=== PATIENT | female | born 1990 ===

== ENCOUNTER 2019-12-28 18:23 | Observation (INO) | payer OTHER ==
[2019-12-28 20:52] VITALS: BP 106/64; PULSE 94; TEMP 98.8
[2019-12-29 01:59] VITALS: BP 99/63; PULSE 99; TEMP 98.8
[2019-12-29 05:59] VITALS: BP 96/62; PULSE 95; TEMP 98.1
[2019-12-29 06:59] LABS: BASO % 0.4 % (0.0-2.0); EOS # 0.1 (0.0-0.7); EOS % 0.9 % (0-4.0); GRAN # 7.7 (1.4-6.5); GRAN % 69.6 % (42.2-75.2); HEMATOCRIT 37.3 % (37.0-47.0); HEMOGLOBIN 12.5 g/dl (12.5-16.0); LYMPH # 2.3 (1.2-3.4); LYMPH % 20.6 % (20.0-51.0); MEAN CELL VOLUME 93 fl (80.0-100.0); MEAN CORPUSCULAR HEMOGLOBIN 31 pg (27.0-31.0); MEAN CORPUSCULAR HGB CONC 34 g/dl (33.0-37.0); MEAN PLATELET VOLUME 9.7 fl (7.4-10.4); MONO # 0.9 (0.1-0.6); MONO % 7.9 % (1.7-9.3); PLATELET COUNT 308 K/mm3 (130-400); RED BLOOD COUNT 4.01 M/mm3 (4.10-5.30); REDCELL DISTRIBUTION WIDTH-CV 12.9 % (11.5-14.5)
[2019-12-29 07:17] LABS: ALBUMIN 3.8 gm/dL (3.5-5.0); BILIRUBIN,TOTAL 1.1 mg/dL (0.0-1.0); CREATININE, serum 0.58 (0.52-1.25); POTASSIUM 3.4 mmol/L (3.4-5.0); TOTAL PROTEIN 6.8 gm/dL (6.4-8.2)
[2019-12-29 07:38] VITALS: BP 102/69; PULSE 95; TEMP 98.2
--- NOTE | 2019-12-29 09:58 | NUR ---
BILL met with the patient to discuss discharge plan. The patient lives on [address] with her , aH ([id number]#[phone]), and two children. She reports independence with ADLs and does not have any DME. The patient's PCP is Dr. Warner at [facility] and she receives her medications at the on [address]. She reports no difficulties obtaining her meds. The patient does not have advanced directives and she was not interested in completing them at this time. The patient plans to return home with her family upon discharge. No additional needs at this time.
--- NOTE | 2019-12-29 10:58 | NUR ---
Patient to [facility]. rounded this am. She has tolerated clears without nausea. Patient only complaint is of a headache, patient reports she normally drinks soda. Will monitor
[2019-12-29 12:07] VITALS: BP 105/63; PULSE 86; TEMP 98
[2019-12-29] MEDS ORDERED: AMOXICILLIN/CLA1 TA1 PO (14:28)
--- NOTE | 2019-12-29 14:45 | NUR ---
Patient ready for discharge-orders obtained from Dr. Mayer. Patient given dose of Hs Augmentin, script was sent to her pharmacy [place], patient to begin in am. Patient aware she is to follow up with PCP [place] later this week or begining of next week regaurding pregnacy & gallstones. Int dc. Low fat diet reviewed. Patient tolerated a salad & baked chips for lunch. Patient unsure if her nausea is gall stone related or prenancy related (zofran was given prior to lunch), she reports being quite nauseated with prior pregnacy. Patient wheeled out with all belongings. Her taking her home, they were rushed on discharge trying to make it on [place] to pecan picker daughter from school.
== END 2019-12-29 15:43 | disposition home or self-care (01) ==
LOC: SURG 18:23
PROVIDERS: ADMIT Surgery
DX: O99.611 Diseases of the digestive system complicating pregnancy, first trimester (principal); K80.00 Calculus of gallbladder with acute cholecystitis without obstruction; Z79.899 Other long term (current) drug therapy
CPT/HCPCS: G0378; G0379; J2405; J2543; J7030